=== PATIENT | female | born 1990 | race Caucasian/White ===

== ENCOUNTER 2023-03-11 13:04 | Outpatient (CLI) | payer OTHER, SELFPAY ==
[2023-03-11 18:17] LABS: Chlamydia DNA Amplified* NOT DETECTED (No Detected); GC DNA Amplified* NOT DETECTED (No Detected)
== END 2023-03-11 13:05 | disposition home or self-care (01) ==
PROVIDERS: Visit Provider Registered Nurse
DX: Z34.91 Encounter for supervision of normal pregnancy, unspecified, first trimester (principal); Z3A.08 8 weeks gestation of pregnancy
CPT/HCPCS: 76817; 86592; 86703; 86762; 86787; 86803; 86850; 86900; 86901; 87086; 87340; 87491; 87591

== ENCOUNTER 2023-06-05 13:46 | Outpatient (CLI) | payer OTHER, SELFPAY ==
--- NOTE | 2023-06-05 14:00 | CRLHL7_ITS ---
For Patients: As a result of the Century Cures Act, medical imaging exams and procedure reports are released immediately into your electronic medical record. You may view this report before your referring provider. If you have questions, please contact your health care provider. INDICATION: Evaluate anatomy. COMPARISON: 03/11/2023 TECHNIQUE: Real time carson scale imaging of the fetus was performed as well as color Doppler analysis of the umbilical vessels. FINDINGS: Sonographic imaging demonstrates a single living intrauterine gestation. Fetus demonstrates a regular cardiac rate of 148 beats per minute. Fetus has a vertex physician. The placenta lies posterior with complete previa confirmed with transvaginal imaging. Amniotic fluid volume appears normal. Single deepest vertical pocket: 5.7 cm. The cervix is closed and measures 4.2 cm in length. The composite ultrasound gestational age is calculated at 20 weeks 4 days with an estimated sonographic due date of 10/19/2023. The estimated weight is 368 grams which lies at the 58th %. The following biometric measurements were obtained: Biparietal diameter: 4.8 cm/20 weeks 4 days 55th% Head circumference: 18.1 cm/20 weeks 4 days 47th% Abdominal circumference: 16.0 cm/21 weeks 1 day 67th% Femur length: 3.3 cm/20 weeks 1 day 32nd% The HC/AC ratio measures: 1.13 range (1.07-1.25) On anatomic survey, there is a normal appearance of the cavum septi pellucidi, cisterna magna and cerebellum. Unilateral choroid plexus cyst. The nose, lips, and facial profile appear normal. The cervical, thoracic and lumbar spine are well visualized and appear normal. There is a normal four-chamber heart view and the left and right ventricular outflow tracts appear normal. The diaphragm and stomach appear normal. The kidneys and bladder also appear normal. There is a normal three-vessel cord and cord insertion site. The four extremities appear normal. IMPRESSION: Normal OB ultrasound exam with concordance of clinical and sonographic dating. 8 x 5 millimeter choroid plexus cyst. Remainder of the anatomic survey is normal. Level 2 ultrasound recommended. Complete previa of the posterior placenta. Dictated by Scott Weiss MD @ 06/05/2023 3:32:34 PM (Electronically Signed)
== END 2023-06-05 13:47 | disposition home or self-care (01) ==
LOC: US 13:46
PROVIDERS: Visit Provider Obstetrics & Gynecology
DX: Z34.92 Encounter for supervision of normal pregnancy, unspecified, second trimester (principal); Z3A.20 20 weeks gestation of pregnancy
CPT/HCPCS: 76805; 76817

== ENCOUNTER 2023-07-27 12:18 | Outpatient (CLI) | payer OTHER, SELFPAY ==
--- NOTE | 2023-07-27 12:15 | CRLHL7_ITS ---
For Patients: As a result of the Century Cures Act, medical imaging exams and procedure reports are released immediately into your electronic medical record. You may view this report before your referring provider. If you have questions, please contact your health care provider. INDICATION: Check growth. Prior complete previa. Follow-up. TECHNIQUE: Transabdominal obstetrical ultrasound. COMPARISON: June 05, 2023. FINDINGS: Single living intrauterine in vertex presentation. Posterior placenta. Complete placenta previa. heart rate 144 beats per minute. Normal amniotic fluid. Single deepest pocket measurement 4.4 cm. Closed cervix measuring 4.3 cm. Biparietal diameter 7.3 cm, 29 weeks 1 day, 80th percentile. Head circumference 27.4 cm, 29 weeks 6 days, 81st percentile. Abdominal circumference 24.7 cm, 28 weeks 6 days, 74th percentile. Femur length 5.3 cm, 28 weeks 0 days, 40th percentile. Composite calculated ultrasound age 29 weeks 0 days with a sonographic due date of October 12, 2023. Estimated weight 1273 g which lies at the 72nd percentile. The head to abdominal circumference ratio is normal at 1.11 (0.99-1.21). IMPRESSION: 1. Single live IUP in vertex presentation. Posterior complete placenta previa. Normal amniotic fluid. 2. Composite calculated ultrasound age 29 weeks 0 days with a sonographic due date of October 12, 2023. 3. Appropriate growth and maturation compared to the prior study. Dictated by Jose Eduardo Casas MD @ 07/27/2023 6:55:42 PM (Electronically Signed)
== END 2023-07-27 12:19 | disposition home or self-care (01) ==
LOC: US 12:19
PROVIDERS: Visit Provider Obstetrics & Gynecology
DX: O44.03 Complete placenta previa NOS or without hemorrhage, third trimester (principal); Z3A.29 29 weeks gestation of pregnancy
CPT/HCPCS: 76816; 76817; 86592

== ENCOUNTER 2023-09-08 07:06 | Outpatient (CLI) | payer BC, SELFPAY ==
--- NOTE | 2023-09-08 07:15 | CRLHL7_ITS ---
For Patients: As a result of the Century Cures Act, medical imaging exams and procedure reports are released immediately into your electronic medical record. You may view this report before your referring provider. If you have questions, please contact your health care provider. INDICATION: Third trimester scan, evaluate growth. Follow-up placental position. COMPARISON: 07/27/2023 TECHNIQUE: Real time carson scale imaging of the fetus was performed. FINDINGS: Sonographic imaging demonstrates a single living intrauterine gestation. Fetus demonstrates a regular cardiac rate of 135 beats per minute. Fetus has a vertex position. The placenta lies posteriorly. Placental edge 1.9 cm from the internal cervical os. Cervix closed measuring 4.1 cm. Amniotic fluid volume appears normal and there is a single deepest vertical pocket: 5.6 cm. The estimated weight is 2417gm which lies at the 55th %. On the prior OB ultrasound exam dated 07/27/2023 the estimated weight was at the 72nd%. BPD 14th percentile. HC 43rd percentile. AC 79th percentile. FL 31st percentile. The HC/AC ratio measures 1.01 range (0.94-1.11). IMPRESSION: Transvaginal measurement of the cervix demonstrates the cervix to be closed and measures 4.1 cm. The edge of the posterior placenta is located 1.9 cm from the internal cervical os. Sonographic gestational age 34 weeks 1 day and sonographic due date 10/19/2023. Good correlation with dates. Normal interval growth. Estimated weight 55th percentile. Abdominal circumference 79th percentile. Dictated by Scott Weiss MD @ 09/08/2023 8:28:25 AM (Electronically Signed)
== END 2023-09-08 07:07 | disposition home or self-care (01) ==
LOC: US 07:07
PROVIDERS: Visit Provider Obstetrics & Gynecology
DX: O44.03 Complete placenta previa NOS or without hemorrhage, third trimester (principal); Z3A.34 34 weeks gestation of pregnancy
CPT/HCPCS: 76816; 76817; 82728

== ENCOUNTER 2023-09-21 12:07 | Outpatient (CLI) | payer BC, SELFPAY ==
--- NOTE | 2023-09-21 12:15 | US_ITS ---
INDICATION: CHECK PLACENTA. COMPARISON: 09/08/2023. TECHNIQUE: ROUTINE GRAYSCALE AND COLOR DOPPLER ULTRASOUND IMAGING OF THE PELVIS PERFORMED WITH TRANSABDOMINAL AND TRANSVAGINAL TECHNIQUE. FINDINGS: THE CERVIX IS CLOSED AND MEASURES 2.8 CM WITH PELVIC PRESSURE. NO FUNNELING. POSITION IS VERTEX. NO PREVIA. THE PLACENTAL EDGE IS LOCATED 2.4 CM FROM THE INTERNAL CERVICAL OS. THE PLACENTA IS POSTERIOR. NORMAL AMNIOTIC FLUID MEASURING 5.6 CM SINGLE DEEPEST POCKET. HEART RATE 124 BEATS PER MINUTE. IMPRESSION: POSTERIOR PLACENTAL EDGE LOCATED 2.4 CM FROM THE CLOSED CERVIX.
--- NOTE | 2023-09-21 12:15 | US_ITS ---
INDICATION: CHRONIC HYPERTENSION. TECHNIQUE: ROUTINE GRAYSCALE IMAGING OF THE FETUS PERFORMED. COMPARISON: 09/16/2023. FINDINGS: HEART RATE 127 BEATS PER MINUTE. AMNIOTIC FLUID VOLUME NORMAL WITH SINGLE DEEPEST POCKET 5.8 CM. POSITION IS VERTEX. PLACENTA IS POSTERIOR. NORMAL GROSS BODY MOVEMENTS, TONE AND RESPIRATORY ACTIVITY. IMPRESSION: NORMAL BIOPHYSICAL PROFILE 03/17.
== END 2023-09-21 12:08 | disposition home or self-care (01) ==
LOC: US 12:07
PROVIDERS: Visit Provider Obstetrics & Gynecology
DX: Z34.93 Encounter for supervision of normal pregnancy, unspecified, third trimester (principal); Z3A.36 36 weeks gestation of pregnancy
CPT/HCPCS: 76816; 76817; 87081; 87653

== ENCOUNTER 2023-10-13 05:12 | Inpatient (IN) | payer BC, SELFPAY ==
[2023-10-13] VITALS (27 sets, daily range): BP systolic 102–126; BP diastolic 60–75; PULSE 54–91; RESP 16–18; TEMP 36.5–36.9; O2SAT 95–100; BMI 25.2
[2023-10-13] MEDS: LACTATED RINGERS 1000 ML 1,000 ML 525 ML IV ×2 (05:42→06:25)
[2023-10-13 06:10] LABS: Basophils Absolute Auto 0.02 K/uL (0.00-0.30); Basophils Percent Auto 0.2 % (0.0-3.0); Eosinophils Absolute Auto 0.31 K/uL (0.00-0.50); Eosinophils Percent Auto 3.8 % (0.0-7.0); Hematocrit 36.5 % (33.0-51.0); Immature Granulocytes Abs Auto 0.03 K/uL (0.00-0.30); Immature Granulocytes Pct Auto 0.4 %; Lymphocytes Absolute Auto 2.66 K/uL (0.90-2.90); Lymphocytes Percent Auto 32.2 % (20-44); Mean Corpuscular HGB Conc 33 gm/dL (32-36); Mean Corpuscular Hemoglobin 29 pg (26-34); Mean Corpuscular Volume 87 fL (80-100); Monocytes Percent Auto 10.5 % (0.0-11.0); Neutrophils Absolute Auto 4.37 K/uL (1.7-7.0); Neutrophils Percent Auto 52.9 % (42.0-72.0); Platelet Count* 244 K/uL (140-440); RDW Coefficient of Variation % 14.9 % (11.5-15.5); Red Blood Count 4.21 m/uL (4.00-5.20); White Blood Count* 8.26 K/uL (4.50-11.00)
[2023-10-13 06:12] LABS: Slide Review Reflex No
[2023-10-13] MEDS: CEFAZOLIN 2 GM INJ IVP (07:42)
--- NOTE | 2023-10-13 09:06 | PM.OBPRCCS ---
Procedure Date of procedure: 10/13/23 Pre-op diagnosis: 39 weeks gestation, h/o prior Post-op diagnosis: same Procedure Done: Global Will [facility] bill your pro fee for this procedure?: Yes Blood Loss Measurement Type: QBL (458 mL) Bakri Used: No IV fluids (mL): 1,500 Urine Output (mL): 150 Surgeon: Dorota Medrano MD Anesthesia Type: Spinal (and TAP block) Findings: Moderate adhesions between fascia, rectus muscles, bladder and uterine serosa. Thin lower uterine segment. Liveborn male, cephalic presentation, nuchal cord x3, Weight 8 pounds 0 ounces, Apgars 9 and 9 at 1 and 5 minutes respectively. Procedure Name: Repeat low transverse section. Procedure Description: After obtaining informed consent, the patient was taken to the operating room where spinal anesthesia was obtained and found to be adequate. She was prepared and draped in the normal sterile fashion in the dorsal supine position with a leftward tilt. A Pfannenstiel skin incision was made with a scalpel along the line of the patient's previous Pfannenstiel scar. This incision was carried down to the underlying layer of fascia with the Bovie. The fascia was incised in the midline and the incision extended laterally. The superior and inferior aspects of the fascial incision were grasped with Larry clamps, elevated and the underlying rectus muscles dissected off sharply and with electrocautery. This dissection took an increased amount of time given dense adhesions. The rectus muscles were then in the midline. The adhesions between the bladder and lower uterine segment were taken down sharply with Metzenbaum scissors. The Aftab O retractor was then placed into the incision. The lower uterine segment was then incised in a transverse fashion with the scalpel. Upon entry into the uterus, clear amniotic fluid was noted. The uterine incision was extended laterally with blunt finger fractionation. The infant's head was delivered atraumatically, the nuchal cord x3 was reduced over the head, and the remainder of the 's body was delivered. The nose and mouth were suctioned with the bulb suction. The cord was doubly clamped and cut after a 30 second delay, and the was handed off the field for evaluation. The placenta was delivered spontaneously with umbilical cord traction and fundal massage. The uterus was cleared of all clots and debris. The uterine incision was reapproximated in a running locking fashion with a 0 chromic suture. A 2nd layer of the same suture was used to imbricate in horizontal fashion. The gutters were irrigated and suctioned. All instruments and retractors were removed. The anterior peritoneum was reapproximated in a running fashion with a 3-0 Vicryl suture. The subfascial tissues were carefully inspected and hemostasis assured. The fascia was reapproximated in a running fashion with a looped 0 Maxon suture. The subcutaneous tissues were copiously irrigated. Hemostasis was assured. The skin was closed in a subcuticular fashion with 4-0 Vicryl. Surgical glue and dressing were applied. The patient tolerated the procedure well. Sponge, lap, needle, and instrument counts were reported as correct x2. The patient was taken to the recovery room, awake, and in stable condition. She did receive 2 grams of IV Ancef preoperatively. Complications: None. Pathology: none sent Surgery Debrief Performed: Yes Condition: stable Disposition: floor total score - 1 minute: 9 total score - 5 minute: 9
--- NOTE | 2023-10-13 09:13 | W.ANESCHARGE ---
Anesthesia Charges Start Date/Time Anesthesia Start Date: 10/13/23 Anesthesia Start Time: 07:26 Stop Date/Time Anesthesia Stop Date: 10/13/23 Anesthesia Stop Time: 09:06
--- NOTE | 2023-10-13 09:41 | P.NB_ITS ---
Nerve Block Nerve Block Time Seen by Provider: 08:54 Date Seen: 10/13/23 Type of block requested by surgeon for post-operative analgesia: TAP Side: bilateral Time out performed: Yes Verification of patient name: Yes Verification of date of : Yes Site marking: site marked Name of person performing procedure: Evaristo Continuous monitoring Was continuous monitoring of O2 sat, B/P, outside residential sales professional, recorded every 15 minutes?: Yes Procedure Checklist: sterile prep, needles and gloves Ultrasound guided. Images saved: Yes Medications given in 5ml increments after negative aspiration: Marcaine %: 0.25 mL: 30 Needle gauge: 20 and Exparel mL: 10 Patient tolerated procedure well: Yes Additional comments: Needle noted between internal oblique and transversus abdominus. Local spread visualized Block Charges Block Charge (with Pro Fee): TAP Bilateral Use of Ultrasound Machine for Block: Yes- US Guidance/pain block
--- NOTE | 2023-10-13 09:41 | W.ANESCHARGE ---
Anesthesia Charges Start Date/Time Anesthesia Start Date: 10/13/23 Anesthesia Start Time: 07:26 Stop Date/Time Anesthesia Stop Date: 10/13/23 Anesthesia Stop Time: 09:06
[2023-10-13] MEDS: KETOROLAC 30 MG/ML inj IVP ×2 (15:15→20:53)
[2023-10-13] MEDS: LACTATED RINGERS 1000 ML 1,000 ML 125 ML IV (16:45)
[2023-10-13] MEDS: ONDANSETRON 2 MG/ML inj 4 MG IV (17:46)
[2023-10-14] VITALS (13 sets, daily range): BP systolic 97–105; BP diastolic 59–69; PULSE 73–89; RESP 16; TEMP 36.5–36.8; O2SAT 95–97
[2023-10-14] MEDS: KETOROLAC 30 MG/ML inj IVP ×3 (03:23→14:59)
[2023-10-14] MEDS: SODIUM CHLORIDE 0.9 % (FLUSH) 10 ML SYRINGE IVF (03:24)
[2023-10-14 06:28] LABS: Hemoglobin* 10.4 gm/dL (12.0-16.0)
[2023-10-14] MEDS: DOCUSATE SODIUM 100 MG CAPSULE PO (08:47)
--- NOTE | 2023-10-14 10:28 | PM.OBPNVD1 ---
OB - PN:Subj Subjective Date Seen: 10/14/23 Patient comments OB post-: no complaints, pain well controlled and tolerating diet infant status: and doing well feeding status: exclusively Narrative: The patient feels well.? The pain is well controlled with current medications.? She has no new complaints.? Urinary output is adequate and she is voiding without difficulty.? Has a good appetite, is tolerating a general diet. She had lots of nausea yesterday that is now resolved. She is not yet passing flatus, and has not had a bowel movement. Discussed that if she is not passing flatus by this evening to let nursing staff know.? Has scant amount of rubra lochia.? She is ambulating well.? OB - PN: Obj Exam Physical Exam: Vital signs: Temp Pulse Resp BP Pulse Ox O2 Del Method 98.1 F 74 16 97/59 L 96 Room Air 10/14/23 07:54 10/14/23 07:54 10/14/23 07:54 10/14/23 07:54 10/14/23 07:54 10/14/23 07:54 Narrative: GENERAL APPEARANCE:? normal affect, alert, no distress? MOOD:? appropriate? CHEST:? clear to auscultation and percussion? HEART:? regular rate and rhythm? ABDOMEN:? soft, non-tender the uterine fundus is U/2 and is appropriate for the stage of recovery.?Incision is well approximated without redness or drainage. EXTREMITIES:? normal and no edema? Urinary Catheter Management: Urethral: Cath placed during this visit: yes Urethral indwelling: No Reason for continuing: surgical procedure Insertion date: 10/13/23 Insertion time: 07:40 OB - PN: Obj Data Labs Labs: Laboratory Results - last 24 hr 10/14/23 06:15 Hgb 10.4 L OB - PN: A/P Delivery Assessment and Plan (1) care following delivery: Status: Acute (2) Lactating mother: Status: Acute Plan day: 1 Plan: routine care Comments: Anticipate discharge home tomorrow or the following day per patient preference.
[2023-10-14] MEDS: ACETAMINOPHEN 500 MG TABLET 1000 MG PO (19:40)
[2023-10-15] MEDS: ACETAMINOPHEN 500 MG TABLET 1000 MG PO ×2 (02:04→07:54)
[2023-10-15] MEDS: IBUPROFEN 600 MG TABLET PO ×2 (04:26→10:49)
[2023-10-15 04:27] VITALS: BP 101/60; PULSE 89; RESP 16; TEMP 36.6
[2023-10-15] MEDS: DOCUSATE SODIUM 100 MG CAPSULE PO (07:54)
--- NOTE | 2023-10-15 09:42 | PM.OBDSVD1 ---
DS: Providers Provider Date Seen: 10/15/23 Date of admission: 10/13/23 05:12 Primary care physician: Not a Local Provider Admitting Clinician: Dorota Medrano MD Attending Physician on discharge: Georgette Martinez CNM Date of Discharge: 10/15/23 DS: Diagnosis Discharge Diagnosis (1) care following delivery: Status: Acute (2) Lactating mother: Status: Acute Exam Narrative: Exam Narrative: GENERAL APPEARANCE:? normal affect, alert, no distress MOOD:? appropriate CHEST:? clear to auscultation HEART:? regular rate and rhythm ABDOMEN:? soft, non-tender the uterine fundus is firm At Umbilicus, Midline and is appropriate for the stage of recovery. EXTREMITIES:? normal and trace edema Incision: Healing well, no surrounding erythema, abnormal induration or discharge Const: Vital Signs, click to edit/add: Vital Signs - 24 hr 10/14/23 15:06 10/14/23 19:42 10/15/23 04:27 Temperature 97.8 F 98.0 F 97.8 F Pulse Rate [Right Pulse Oximeter] 89 89 89 Respiratory Rate 16 16 16 Blood Pressure [Ri ght Arm] 105/69 99/60 101/60 Pulse Oximetry 97 Oxygen Delivery Me thod Room Air Room Air Room Air Documenting provider has reviewed patient's vital signs: yes OB - DS: Summary Hospital Course Hospital Course: oZ is a 33 y.o. who was admitted to [facility] for repeat C/S. ?She had an uncomplicated .?The patient feels well. ?The pain is well controlled with current medications. ?She has no new complaints. ?She is breast feeding and reports things are going well.? the patient has done well.? Vitals have been stable.? She has remained afebrile.? Has a good appetite, is tolerating a general diet. ?She is voiding without difficulty.? She is passing gas and has not had a bowel movement.? She is ambulating and denies any dizziness.? Has Small amount of rubra lochia. ?She is undecided about her plan for prevention. Peripartum Data delivery method: Repeat Section Procedures: Procedures Operation Date: 10/13/23 07:15 Actual Procedure Side Surgeon p Repeat Section Dorota Medrano MD complications: none [place] Gender: Male Discharge Plan: Home Status at Discharge Functional status at discharge: independent ambulation Overall status at discharge: patient is progressing back to baseline Time Spent with Patient Time attestation: Total time spent providing and/or coordinating discharge services: Time spent: Less than 30 minutes Discharge Plan Discharge Disposition: Home, Self-Care Date of Admission: 10/13/23 05:12 Attending Provider on Discharge: Georgette Martinez Primary Care Provider: Provider,Not a Local Condition: Stable Anticipated Discharge Date/Time: 10/15/23 12:00 Discharge Medications: New acetaminophen 500 mg Tablet 1,000 mg PO Q6H PRN (Reason: Pain) Qty: 0 0RF docusate sodium 100 mg Capsule 100 mg PO DAILY Qty: 90 2RF ibuprofen 600 mg Tablet 600 mg PO Q6H PRN (Reason: Pain) Qty: 60 0RF oxycodone 5 mg Tablet 5 - 10 mg PO Q4H PRN (Reason: Pain) Qty: 10 0RF Continued DHA 200 mg capsule 200 mg PO DAILY Discontinued ferrous sulfate 325 mg (65 mg iron) tablet 325 mg PO QDAY Qty: 60 0RF Discharge Orders: Discharge Order (Routine); Ordered 10/15/23 Ordered By: Georgette Martinez Patient Education: OB Over the Counter Medication Information, OB /Breast Feeding Additional Instructions: Discharge instructions were reviewed with the patient including signs and symptoms of infection and home going medications Lifting Restrictions: 20 pounds for 6 weeks No not submerge incision under water X 2 weeks? Nothing vaginally for 6 weeks: no tampons or intercourse Do not drive while taking narcotic pain medication(s) Off Work or School for 6 weeks 2-week visit: incision check, discuss feeding concerns, review control options and screen for anxiety/depression. 6-week visit for an annual exam. consultation services are available to all mothers and babies for the first year after delivery.? To make an appointment, please call [phone]. Activity Level: Activity as Tolerated Discharge Diet: Regular Follow Up Appointments: Provider,Not a Local [Primary Care Provider] - [facility] [Provider Group] Forms: [employer] Info Instructions
[2023-10-15 10:47] VITALS: BP 109/71; PULSE 93; RESP 16; TEMP 36.7; O2SAT 96
== END 2023-10-15 13:28 | disposition home or self-care (01) | DRG 540 ==
PROVIDERS: Admitting Provider Obstetrics & Gynecology; Visit Provider Obstetrics & Gynecology
PROC: 10D00Z1 Extraction of Products of Conception, Low, Open Approach (ICD-10-PCS; CPT 59514; principal; 2023-10-13 07:15)
DX: O34.211 Maternal care for low transverse scar from previous cesarean delivery (principal); Z3A.39 39 weeks gestation of pregnancy; O99.02 Anemia complicating childbirth; D64.9 Anemia, unspecified; Z37.0 Single live birth; G89.18 Other acute postprocedural pain
CPT/HCPCS: 01961; 36415; 64488; 76942; 85018; 85025; 86592; 86850; 86900; 86901; A9270; C9290; J0665; J0690; J1100; J1885; J2274; J2371; J2405; J2590; J7120

== ENCOUNTER 2023-10-23 10:20 | Outpatient (CLI) | payer BC, SELFPAY ==
--- NOTE | 2023-10-23 17:00 | P.LACCB_ITS ---
Consult Note - Mom Date of Visit Date of visit: 10/23/23 [employer] consultant: Mita Ashton Visit Code: Visit Patient's Information Phone number: [phone] : 2 Para: 2 Allergies No Known Drug Allergies Allergy (Verified 10/27/23 13:49) Mother's Medical History: Medical History (Updated 10/27/23 @ 15:06 by Rosie Carnes CNP) Delivery Information Delivery type: Repeat Section Weeks Gestation: 39.0 Gestational Age: AGA Weight: 3.625 kg Discharge Weight: 3.318 kg Baby's Information Baby's Age at Visit: 10 days Baby's Provider or Clinic: Dr. Foss Jaundice: No Reason for Consult Reason for Consult: painful latch, damaged nipple Past Experience Past Experience: Yes (nursed her older son x 13 months) Current Frequency of Day Feedings: about every 2 hours Frequency of Night Feedings: 1 - 2 times overnight Both Breasts: Yes Suck: strong Latch: somewhat narrow Length of Time: about 10 min/side Goals: to increase comfort Pumping Pumping: Yes (has pumped for the last 12 hours) Quantity Pumped: up to 6 oz total each time Supplementing EMB Supplement: Yes (baby has been taking 2 - 2.5 oz bottle since mom started pumping) Formula Supplement: No Baby Elimination Number of Wet Diapers a Day: 8 - 9/day Number of BM a Day: 8 - 9/day, yellow and seedy Breast/Nipple Condition Breast Information: WNL Maternal Nipple Condition - Left: Common Nipple Maternal Nipple Condition - Right: Common Nipple Sore Nipples: Yes Onsite Pre-Feed weight: 3.602 kg Post-Feed weight: 3.67 kg Milk Transferred (mL): 68 Assessments/Interventions Assessments/Interventions: Met with mom and this now 10 day old ex- term AGA baby for consult. Mom reports has become very painful and her nipples are damaged (they were bleeding a few days ago). States baby is nursing about every 2 hours during the day and 1 - 2 times overnight, she has a hard time getting him to open wide when he latches. He nurses for about 10 minutes/side. D/T the pain, mom pumped instead of nursing for about half the day yesterday, but did nurse baby overnight and before this appointment. When pumping, she got up to 6 oz total each time, baby took 2 - 2.5 oz EBM for the times that mom pumped. Breast WNL, symmetrical with rounded lower quadrants, intramammary distance < 1.5 inches. Nipples are a little short but everted and they don't flatten or retract on compression. Fissures to the tips of the nipple are healing. Baby has gained 33 grams/day since his visit with PCP on 10/18 and he's now less than 1% below BW at 10 DOL. Mom denies any caput/cephalohematoma at delivery and thinks he has equal ROM when turning his head/moving his extremities. His palate is a little high. His upper frenulum is tight and a little thick. He has a very strong suck on a finger, but doesn't extend the tongue over the gumline consistently. The tongue has good lateralization. The lower frenulum looks to be posterior. Mom latched baby to the left side in the cross cradle hold and it was uncomfortable. Once she was verbally coached on better positioning for baby, pointed her nipple to his nose, and brought him in to her quickly when he opened wide she was able to get a deeper latch and was more comfortable. Baby nursed 10 - 15 minutes, needing some stimulation to stay nutritively suckling. When he got sleepy she removed him, roused him, and offered the right side. She was able to latch him more deeply using the position suggestions and it was more comfortable, although this nipple is much more tender. After about 10 minutes, the latch slipped and she removed him. When weighed he had transferred 60 ml. He was very agitated on the scale so mom offered the left side again, but he immediately became sleepy and didn't really nutritively suckle. He transferred 8 more ml for a total of 68 ml. Both nipples were a little misshapen when baby was removed. Mom was shown an exercise (tug of war) that will hopefully teach him to extend his tongue over the gumline more consistently. Also shown some ideas for massage to hopefully help him open wider. She was also shown how to use a nipple shield if she'd like to try that for a few days while the right side continues to heal. Plan: 1. Continue to nurse on demand, offering both sides and working to keep him awake and actively suckling. OK to use the nipple shield on the right side for a few days if needed. 2. No medical need to supplement. 3. Suggested she pump/use the [place] to comfort if needed after a nursing sess ion. Also instructed her to pump to empty if she uses the nipple shield and doesn't see milk in it after a feeding. 4. Try the tongue exercise and massage with daytime diaper feedings, make it a game. 5. Will f/u by phone on 10/29. If no improvement, could consider body work and/or evaluation from pediatric dentist. Meds Home Medications and Allergies Home Medications Medication Instructions Recorded Confirmed Type docosahexaenoic acid 200 mg 200 mg PO DAILY 03/11/23 10/27/23 History capsule ( DHA) Allergies Allergy/AdvReac Type Severity Reaction Status Date / Time No Known Drug Allergies Allergy Verified 10/27/23 13:49
== END 2023-10-23 10:21 | disposition home or self-care (01) ==
LOC: OB LAC 10:20
PROVIDERS: Visit Provider Obstetrics & Gynecology
DX: Z39.1 Encounter for care and examination of lactating mother (principal)
CPT/HCPCS: G0463

== ENCOUNTER 2023-10-27 15:05 | Outpatient (CLI) | payer BC, SELFPAY | END 2023-10-27 15:06 | disposition home or self-care (01) | LOC: NFLDREF 15:06 | PROVIDERS: Visit Provider Registered Nurse | DX: Z39.2 Encounter for routine postpartum follow-up (principal); R30.0 Dysuria | CPT/HCPCS: 87086 ==